=== PATIENT | male | born 1955 | race Caucasian/White ===

== ENCOUNTER 2024-03-17 12:29 | Emergency (ER) | payer OTHER, SELFPAY ==
[2024-03-17 12:30] VITALS: BMI 34.4
[2024-03-17 13:37] VITALS: BP 131/79; PULSE 60; RESP 16; TEMP 36.5; O2SAT 95
--- NOTE | 2024-03-17 13:48 | XR_ITS ---
Examination: PA lateral chest 2 views Technique: Upright PA lateral chest 2 views Exam date and time: March 17, 2024 1358 hrs. Comparison February 16, 2017 Indications: Chest pain dizziness today. Findings: Opacity in the right middle lobe obscuring detail right cardiac contour Normal heart size Ectatic thoracic aorta No pulmonary edema Impression: Right middle lobe pneumonia
--- NOTE | 2024-03-17 13:48 | EKG_ITS ---
[facility], [place] Test Date: 2024-03-17 Pat Name: HUNTER CARRANZA Department: Room: - Gender: Male Transportation Driver: : [id number] Requested By: Artis Edwards ([facility]) Order Number: [id number] Reading MD: Artis Edwards ([facility]) Measurements Intervals [place] Rate: 62 P: 47 [place]: 151 QRS: 45 QRSD: 84 T: 71 QT: 384 QTc: 391 Interpretive Statements SINUS RHYTHM WITH OCCASIONAL SUPRAVENTRICULAR PREMATURE COMPLEXES NONSPECIFIC T-WAVE ABNORMALITY No previous ECG available for comparison /store/S0/[id number].pdf
--- NOTE | 2024-03-17 13:48 | XR_ITS ---
Examination: CT brain head without contrast. 2-D sagittal coronal reconstructions Date and time of exam:March 17, 2024 1404 hrs. Comparison June 22, 2011 Indications: Onset dizziness today CTDI: vol (mGy):54.5 DLP: (mGycm):1126 Technique: Multiple CT axial sections of the brain have been obtained, 5 mm slice thickness. Contrast has not been administered. 2-D sagittal, coronal reconstructions have been obtained Low dose protocols were performed. One or more of the following dose reduction techniques were used; automated exposure control, adjustment of the mA and/or KV according to patient size, use of iterative reconstruction technique. Findings: No significant ventricular enlargement. Intra-axial or extra-axial hemorrhage density is not seen. No mass effect or midline shift Basal cisterns are not remarkable. Fourth ventricle is midline. Cranial vault intact. Impression: Negative for acute hemorrhage, mass effect or midline shift Advise clinical correlation follow-up accordingly
--- NOTE | 2024-03-17 13:49 | PD.EDRME ---
Rapid Medical Screening Exam RME Arrival date/time: 03/17/24 12:29 69-year-old male no significant past medical history presents emergency department complaining of dizziness and near syncope. Chief Complaint: Neuro Symptoms/Deficit Time Seen by Provider: 03/17/24 13:45 Vital signs: Vital Signs Temperature 97.7 F 03/17/24 13:37 Pulse Rate 60 03/17/24 13:37 Respiratory Rate 16 03/17/24 13:37 Blood Pressure 131/79 H 03/17/24 13:37 Pulse Oximetry (%) 95 03/17/24 13:37 Oxygen Delivery Method Room Air 03/17/24 13:37 Vital signs reviewed by provider: Yes
[2024-03-17 15:58] LABS: Basophils # (Auto) 0.1 Thou/mm3 (0.0-0.2); Basophils % (Auto) 1 % (0-2.5); Eosinophils # (Auto) 0.2 Thou/mm3 (0.0-0.5); Eosinophils % (Auto) 2 % (0-10); Hematocrit 46.7 % (41.0-53.0); Hemoglobin 15.7 g/dL (13.5-16.0); Immature Granulocytes % (Auto) 0 % (0-0); Immature Granulocytes Auto 0.02 Thou/mm3 (0.00-0.00); Lymphocytes # (Auto) 2.8 Thou/mm3 (1.0-4.8); Lymphocytes % (Auto) 39 % (10-50); Mean Corpuscular HGB Conc 33.6 g/dl (31.0-37.0); Mean Corpuscular Hemoglobin 30.5 pg (25.0-35.0); Mean Corpuscular Volume 91 fL (80-100); Monocytes # (Auto) 0.5 Thou/mm3 (0.0-0.8); Monocytes % (Auto) 7 % (0-12); Neutrophils # (Auto) 3.7 Thou/mm3 (1.8-7.7); Neutrophils % (Auto) 51 % (37-80); Nucleated Red Blood Cell % 0 /100 WBC (0); Platelet Count 234 Thou/mm3 (140-440); RDW Standard Deviation 43.5 fL (35.1-43.9); Red Blood Count 5.15 Miln/mm3 (4.50-5.90); White Blood Count 7.3 Thou/mm3 (3.8-10.6)
[2024-03-17 16:19] LABS: B-Type Natriuretic Peptide 35 pg/mL (0-100)
[2024-03-17 16:23] LABS: Alanine Aminotransferase 36 U/L (10-49); Albumin, Serum 4.9 gm/dL (3.4-4.8); Albumin/Globulin Ratio 2.2 (1.2-2.2); Alkaline Phosphatase 74 U/L (46-116); Anion Gap 8 (7-16); Aspartate Amino Transferase 26 U/L (0-34); BUN/Creatinine Ratio 16 Ratio (12-20); Bilirubin,Total 0.5 mg/dL (0.3-1.2); Blood Urea Nitrogen 22 mg/dL (9-23); Calcium 10.1 mg/dL (8.3-10.6); Calcium (Corrected) 10.1 mg/dL (8.5-10.1); Carbon Dioxide 29.3 mMol/L (20.0-31.0); Chloride 103 mMol/L (98-107); Creatinine (Component) 1.4 mg/dL (0.6-1.3); Estimated Creatinine Clearance 56.8 mL/min (>60); Globulin 2.2 gm/dL (2.3-3.5); Glucose 107 mg/dL (74-106); Osmolality,Calculated 282 (275-295); Potassium 4.2 mMol/L (3.4-5.1); Sodium 140 mMol/L (136-145); Total Protein 7.1 gm/dL (5.7-8.2); Troponin I < 0.020 ng/mL (0.0-0.045); eGFR 55 See Note
[2024-03-17 19:29] VITALS: BP 142/84; PULSE 66; RESP 16; TEMP 36.6; O2SAT 96
--- NOTE | 2024-03-17 19:44 | EDNOTE_ITS ---
ED General RME/HPI General Chief complaint: Neuro Symptoms/Deficit Stated complaint: DIZZINESS, NAUSEA, LEG WEAKNESS Time Seen by Provider: 03/17/24 13:45 Arrival date/time: 03/17/24 12:29 CC: Dizziness HPI mild insidious onset of dizziness this morning, states is mostly dissipated no prior history of similar events but does admit that he took 2 falls in the recent months where he hit his head, patient denies any loss of consciousness but was the first time in his life was not able to break a fall. Patient is afebrile nontoxic-appearing not in any acute distress with no focal deficits. RME / HPI RME / HPI narrative: 03/17/24 12:29 69-year-old male no significant past medical history presents emergency department complaining of dizziness and near syncope. Related Data Previous Rx's ?Medication ?Instructions ?Recorded meclizine 25 mg tablet 25 mg PO QDAY PRN dizziness #10 03/17/24 tabs Allergies Allergy/AdvReac Type Severity Reaction Status Date / Time No Known Allergies Allergy Verified 03/17/24 12:32 Review of Systems Review of Systems Narrative Review of Systems: GEN: No fever, no chills, no weight loss EYES: No discharge, no visual changes, no pain HEENT: No ear pain, no congestion, no sore throat PULM: No shortness of breath, no cough, no congestion CV: No chest pain, no dyspnea on exertion, no palpitations GI: No nausea, no vomiting, no diarrhea, no pain, no constipation : No frequency, no urgency, no dysuria MUSC/SKEL: No joint pain, no back pain SKIN: No rash PSYCH: No hallucinations, no depression HEME/LYMPH: No easy bleeding or bruising tendencies NEURO: No weakness, no headache,+ dizziness Past Medical History Past Medical History OTHER HISTORY: Positive Blood Transfusions Social History SMOKING STATUS: Never smoker ED Exam Narrative Physical exam: [General: Obese not in any acute distress Head normocephalic HEENT: Eyes: Pupils are PERRLA EOMs are intact no nystagmus mouth pink moist membranes uvula is midline all other subsystems of HEENT are within acceptable limits Neck is supple nontender Chest equal chest rise nontender to palpation Respiratory: Clear to auscultation no wheezes crackles or rubs CV: Rate rhythm is regular no murmurs rubs or clicks Abdomen is distended secondary to body habitus soft nontender no masses positive bowel sounds all 4 quadrants Back: No CVA tenderness no spinous process tenderness from cervical spine thoracic and lumbar spine Skin: Intact no petechiae rash induration ulceration or crepitus Extremities: Moving all extremity against resistance cap refill less than 2 seconds neurosensory intact Neuro: Awake alert oriented x3 Glascow coma 15 no focal deficits] cranial nerves through 2 through 12 are grossly intact Course Quality Measures none Orders Category Date Time Status EKG (ED ONLY) *Do not use* NOW Care 03/17/24 13:[address] head/brain wo con Stat Exams 03/17/24 13:48 Completed EKG (ED Only) Stat Exams 03/17/24 13:48 Draft XR chest 2V Stat Exams 03/17/24 13:48 Completed BNP [B-Type Natriuretic Peptide] Stat Lab 03/17/24 15:38 Completed CBC Stat Lab 03/17/24 15:38 Completed Comprehensive Metabolic Panel Stat Lab 03/17/24 15:38 Completed Troponin I Stat Lab 03/17/24 15:38 Completed Vital Signs Vital signs: Vital Signs Temperature 97.7 F 03/17/24 13:37 Pulse Rate 60 03/17/24 13:37 Respiratory Rate 16 03/17/24 13:37 Blood Pressure 131/79 H 03/17/24 13:37 Pulse Oximetry (%) 95 03/17/24 13:37 Oxygen Delivery Method Room Air 03/17/24 13:37 [facility] Patient data External records reviewed:: [facility] previous records Clinical information provided by:: patient Social determinants that could affect healthcare access:: none Patient has the following chronic illnesses:: None How is presenting disease/condition affected by chronic disease/condition?: u neffected by Evaluation data The following diagnostics were reviewed and interpreted by me:: lab results, radiology exam(s) and EKG tracing(s) Lab and/or radiology exams considered but not ordered:: EKG performed at 1357 shows a ventricular rate of 6 2 NV interval 151 QRS of 84 QTc of 389 this is sinus rhythm with occasional PVC. CBC shows no acute leukocytosis anemia thrombocytopenia CMP shows no acute electrolyte imbalances renal impairment transaminitis or T. bili elevation Troponin is negative CT of the head is interpreted by me read by radiology as negative for any acute finding. BNP is negative Interpretation Summary: Vertigo has dissipated to minimal. Patient has no acute finding that requires emergent intervention this time patient will be discharged home with vertigo. Medications Medications considered but not ordered:: None Medication administrations:: None Consultations Consultation(s) initiated? (list below): No Diagnosis Differential Diagnosis ED Complaint MDM: Vertigo CVA TIA Most likely diagnosis given after review of the tests above:: Vertigo Admission Indicated Admission indicated?: not indicated Explain why admission is indicated or not indicated:: Stable for outpatient follow-up Admission Request Was there a request for admission?: No Disposition Plan Disposition Plan: Discharge Discharge Attestation Discharge Attestation: The patient and all family members were given an opportunity to ask questions and understood the discharge instructions. Discharge instructions specifically effects, indications for sooner follow up or return to the emergency department, and the expected course of current diagnosis. Patient condition: Stable Medical Decision Making Differential Diagnosis Differential Diagnosis: Vertigo CVA TIA Lab Data 03/17/24 15:38 03/17/24 15:38 Labs: Lab Results 03/17/24 Range/Units 15:38 WBC 7.3 (3.8-10.6) Thou/mm3 RBC 5.15 (4.50-5.90) Miln/mm3 Hgb 15.7 (13.5-16.0) g/dL Hct 46.7 (41.0-53.0) % MCV 91 (80-100) fL MCH 30.5 (25.0-35.0) pg MCHC 33.6 (31.0-37.0) g/dl RDW Std Deviation 43.5 (35.1-43.9) fL Plt Count 234 (140-440) Thou/mm3 Neut % (Auto) 51 (37-80) % Lymph % (Auto) 39 (10-50) % Ma[place]ick % (Auto) 7 (0-12) % Eos % (Auto) 2 (0-10) % Baso % (Auto) 1 (0-2.5) % Neut # (Auto) 3.7 (1.8-7.7) Thou/mm3 Lymph # (Auto) 2.8 (1.0-4.8) Thou/mm3 Ma[place]ick # (Auto) 0.5 (0.0-0.8) Thou/mm3 Eos # (Auto) 0.2 (0.0-0.5) Thou/mm3 Baso # (Auto) 0.1 (0.0-0.2) Thou/mm3 Immature Gran # (Auto) 0.02 H (0.00-0.00) Thou/mm3 Absolute Nucleated RBC 0.00 (0.00-0.00) Thou/mm3 Immature Gran % 0 (0-0) % Nucleated RBC % 0 (0) /100 WBC Sodium 140 (136-145) mMol/L Potassium 4.2 (3.4-5.1) mMol/L Chloride 103 (98-107) mMol/L Carbon Dioxide 29.3 (20.0-31.0) mMol/L Anion Gap 8 (7-16) BUN 22 (9-23) mg/dL Creatinine 1.4 H (0.6-1.3) mg/dL Estim Creat Clear Calc 56.8 L (>60) mL/min eGFR 55 L (60 - ) See Note BUN/Creatinine Ratio 16 (12-20) Ratio Glucose 107 H (74-106) mg/dL Calculated Osmolality 282 (275-295) Calcium 10.1 (8.3-10.6) mg/dL Corrected Calcium 10.1 (8.5-10.1) mg/dL Total Bilirubin 0.5 (0.3-1.2) mg/dL AST 26 (0-34) U/L ALT 36 (10-49) U/L Alkaline Phosphatase 74 (46-116) U/L Troponin I < 0.020 (0.0-0.045) ng/mL B-Natriuretic Peptide 35 (0-100) pg/mL Total Protein 7.1 (5.7-8.2) gm/dL Albumin 4.9 H (3.4-4.8) gm/dL Globulin 2.2 L (2.3-3.5) gm/dL Albumin/Globulin Ratio 2.2 (1.2-2.2) Discharge Plan Plan Patient Disposition: HOME (Self Care) Patient condition on transfer: Stable Prescriptions/Referrals Prescriptions/Med Rec: New meclizine 25 mg tablet 25 mg PO QDAY PRN (Reason: dizziness) Qty: 10 0RF Referrals: Ryan Latif PA-C [Primary Care Provider] - In 1 week Problem List Clinical Impression: Vertigo Patient/Caregiver Discharge Instructions Other Activity Instructions:: There is no acute finding in all of the workup we did today, however you probably need a workup consider cardiology workup, if there is a worsening of symptoms return the emergency room for reevaluation. I prescribed you a small amount of antidizziness medication called meclizine is available to you in case you needed. Education Materials: ED Dizziness, Uncertain Cause Print Language: Upper Sorbian Stand Alone Forms: Leandra Award Info., Patient Portal Info Letter, Work/School Release PA/RN MEDICAL INPATIENT SERVICES Supervising Physician PA/RN MEDICAL INPATIENT SERVICES Supervising Physician: Yohan Larson ENP
== END 2024-03-17 20:06 | disposition home or self-care (01) ==
PROVIDERS: Emergency Provider Emergency Medicine; PCP Physician Assistant
DX: R42 Dizziness and giddiness (principal); R07.9 Chest pain, unspecified; I49.1 Atrial premature depolarization
CPT/HCPCS: 36415; 70450; 71046; 80053; 83880; 84484; 85025; 93005; 99284

== ENCOUNTER 2024-09-15 11:30 | Emergency (ER) | payer OTHER, SELFPAY ==
[2024-09-15 12:28] VITALS: BP 150/93; PULSE 70; RESP 18; TEMP 36.7; O2SAT 98; BMI 35.6
--- NOTE | 2024-09-15 12:48 | EDNOTE_ITS ---
ED Wound/Laceration-RME/HPI General Chief Complaint: Wound/Laceration Stated Complaint: laceration to left hand Time Seen by Provider: 09/15/24 12:01 Arrival date/time: 09/15/24 11:30 This is a case of 69-year-old male who came in in the emergency room due to left hand laceration history of present illness started 1 hour prior to arrival in the emergency room when the patient was cutting using a knife accidentally stabbed his left hand sustaining a sick centimeter laceration on the dorsal aspect of the left hand minimal bleeding noted no other injury noted tetanus shot is not up-to-date Limitations: no limitations Related Data Previous Rx's ?Medication ?Instructions ?Recorded meclizine 25 mg tablet 25 mg PO QDAY PRN dizziness #10 03/17/24 tabs cephalexin 500 mg capsule 1,000 mg (2 x 500 mg) PO Q12 H #40 09/15/24 caps mupirocin 2 % topical ointment 1 applic topical TID #2 2 grams 09/15/24 Allergies Allergy/AdvReac Type Severity Reaction Status Date / Time No Known Allergies Allergy Verified 09/15/24 11:34 Review of Systems Review of Systems Systems Reviewed: All systems reviewed, normal except as documented Constitutional Constitutional: Reports system reviewed and no additional complaints, except as documented ENT Ears, Nose, Mouth, and Throat: Denies neck pain Cardiovascular Cardiovascular: Reports system reviewed and no additional complaints, except as documented Respiratory Respiratory: Reports system reviewed and no additional complaints, except as documented Gastrointestinal Gastrointestinal: Reports system reviewed and no additional complaints, except as documented Musculoskeletal Musculoskeletal: Reports system reviewed and no additional complaints, except as documented, Denies abnormal gait, Denies arthralgias, Denies atrophy, Denies back pain, Denies deformity, Denies joint swelling, Denies limited range of motion, Denies loss of height, Denies muscle cramps, Denies muscle weakness, Denies myalgias, Denies neck pain, Denies numbness, Denies radiating pain into limb, Denies stiffness, Denies tingling and Reports other (Left hand pain) Integumentary/Breasts Skin/Breast: Reports other (Laceration) Neurologic Neurologic: Reports system reviewed and no additional complaints, except as documented, Reports as per HPI, Denies abnormal gait, Denies numbness and Denies tingling Past Medical History Past Medical History OTHER HISTORY: Positive Blood Transfusions Social History SMOKING STATUS: Never smoker ED Exam General Limitations: Present no limitations General appearance: Present alert and in no apparent distress Head Head exam: Present atraumatic Eye Eye exam: Present normal appearance, PERRL and EOMI ENT ENT exam: Present normal exam, normal oropharynx and mucous membranes moist Neck Neck exam: Present normal inspection, full ROM and trachea midline Chest Chest inspection: Present normal inspection and symmetric chest wall rise Respiratory Respiratory exam: Present normal lung sounds bilaterally; Absent respiratory distress, wheezes, stridor, accessory muscle use or prolonged expiratory phase Cardiovascular Cardiovascular exam: Present regular rate, normal rhythm and normal heart sounds Abdominal Exam Abdominal exam: Present soft and normal bowel sounds Extremities Exam Extremities exam: Present normal inspection and full ROM Expanded Upper Extremity Exam Hand exam: Present other (Noted laceration on the left hand sick centimeter linear laceration involvement of skin subcutaneous no muscle no tendon no bone injury with minimal bleeding no foreign body no abscess no cellulitis ROM intact no snuffbox tenderness neurovascular intact nail is intact) Hand tendon exam: Normal extensor tendon (location) Back Exam Back exam: Present normal inspection and full ROM Neurological Exam Neurological exam: Present alert, oriented X3, CN II-XII intact, normal gait and reflexes normal; Absent motor sensory deficit Psychiatric Psychiatric exam: Present normal affect and normal mood Skin Skin exam: Present warm, dry, intact, normal color and other (Left hand laceration) Course Quality Measures none Orders Category Date Time Status Lidocaine 1% W/Epi 1:100K 20Ml [Xylocaine 1% w/Epi 1: Med 09/15/24 12:28 Discontinued 100K 20 ml] 20 ml .ROUTE .STK-MED ONE Lidocaine 1% W/Epi 1:100K 20Ml [Xylocaine 1% w/Epi 1: Med 09/15/24 12:31 Discontinued 100K 20 ml] 20 ml INFL X1 ONE TET,DIP/PERT AC (Adult)-Tdap [Boostrix Adult (Tdap) Med 09/15/24 12:47 Discontinued Vacc] 0.5 ml IMI .ONCE ONE Vital Signs Vital signs: Vital Signs Temperature 98.0 F 09/15/24 12:28 Pulse Rate 70 09/15/24 12:28 Respiratory Rate 18 09/15/24 12:28 Blood Pressure 150/93 H 06/29/25 12:28 Pulse Oximetry (%) 98 09/15/24 12:28 Oxygen Delivery Method Room Air 09/15/24 12:28 Oxygen saturation 98% in room air PROCEDURES: Laceration Laceration 1: Site: other (Left hand) Side (If applicable): left Size (cm): 6 Description: linear Depth: simple, single layer Local Anesthetic: lidocaine 1% and with epi Amount of anesthesia used (mL): 6 Pre-repair: wound explored, irrigated extensively and deep structures intact Skin layer closed with: nylon Suture size (cm): 4-0 (10) Number of sutures: 10 Technique: simple, interrupted and horizontal mattress Wound / Laceration MDM Narrative MDM Narrative:: This is a case of 69-year-old male who came in in the emergency room due to left hand laceration history of present illness started 1 hour prior to arrival in the emergency room when the patient was cutting using a knife accidentally stabbed his left hand sustaining a sick centimeter laceration on the dorsal aspect of the left hand minimal bleeding noted no other injury noted tetanus shot is not up-to-date physical examination patient is awake alert oriented not in distress nontoxic looking patient sustained a sick centimeter linear laceration with involvement of the skin and subcutaneous no muscle no tendon no bone injury no foreign body minimal bleeding no abscess no cellulitis no redness laceration repair was performed patient tolerated well the procedure procedure done via [place] protocol and via sterile technique patient wound was covered with triple antibiotic and Ze bandage patient was advised to return tomorrow for reevaluation here in the emergency room and we will check he will also follow-up with PCP in 2 days for reevaluation wound check and for removal of suture in 10 days he was prescribed cephalexin for 10 days and mupirocin ointment to prevent infection Tdap was given here in the emergency room patient will take Tylenol for pain patient will return the emergency room for any signs and symptoms of infection or bleeding Patient was discharged with comfortable condition walking with stable gait. Patient verbalized no further complains explained diagnosis and answered patient question. Patient is comfortable with the proposed management plan including the need to follow up with his/her primary care physician and any specialist if applicable Discussed patient for any urgent condition or worsening sx, He/She needed to go to emergency room immediately or call 911. Patient acknowledge the responsibility to follow up as instructed and to monitor her/his symptoms. For any persistence of the symptoms for more than 3-5 days return precaution advised. Discussed the result of the test and was given printed discharge instruction Patient data External records reviewed:: [facility] previous records Clinical information provided by:: patient Social determinants that could affect healthcare access:: none Patient has the following chronic illnesses:: None How is presenting disease/condition affected by chronic disease/condition?: no chronic disease Evaluation data The following diagnostics were reviewed and interpreted by me:: other (specify) Lab and/or radiology exams considered but not ordered:: None Interpretation Summary: None Medications / Prescriptions Medications or Prescriptions considered but not ordered:: Reviewed Medication administrations:: Medication Administration History Discontinued Medications Diphtheria/Tetanus/Acell Pertussis (Diphth,Pertuss(Acell),Tet Vac 0.5 Ml Syr- Adult) 0.5 ml IMi .ONCE ONE Stop: 09/15/24 12:48 Lidocaine/Epinephrine (Lidocaine 1% W/Epi 1:100k 20 Ml Vial) Confirm Administered Dose 20 ml .ROUTE .STK-MED ONE Stop: 09/15/24 12:29 Last Admin: 09/15/24 12:49 Dose: Not Given Documented By: VL Non-Admin Reason: Duplicate Medication on eMAR Lidocaine/Epinephrine (Lidocaine 1% W/Epi 1:100k 20 Ml Vial) 20 ml INFL X1 ONE Stop: 09/15/24 12:32 Reviewed Consultations Consultation(s) initiated? (list below): No Diagnosis Wound Differential Diagnosis: laceration Most likely diagnosis given after review of the tests above:: Hand laceration Admission Indicated Admission indicated?: not indicated Explain why admission is indicated or not indicated:: Not indicated Admission Request Was there a request for admission?: No Admission Attestation Admission request attestation: Not indicated Disposition Plan Disposition Plan: Discharge Discharge Attestation Discharge Attestation: The patient and all family members were given an opportunity to ask questions and understood the discharge instructions. Discharge instructions specifically effects, indications for sooner follow up or return to the emergency department, and the expected course of current diagnosis. Patient condition: Stable Discharge Plan Plan Patient Disposition: HOME (Self Care) Prescriptions/Referrals Prescriptions/Med Rec: New cephalexin 500 mg capsule 1,000 mg PO Q12H Qty: 40 0RF mupirocin 2 % ointment 1 applic topical TID Qty: 22 0RF No Action meclizine 25 mg tablet 25 mg PO QDAY PRN (Reason: dizziness) Qty: 10 0RF Problem List Clinical Impression: Laceration of hand, left Patient/Caregiver Discharge Instructions Education Materials: Suture Care, ED Laceration, Hand: All Closures Additional Instructions: Follow-up with your primary care physician in 2 days for reevaluation and wound check and in 10 days for removal of suture return to the emergency room tomorrow for reevaluation and wound check for any redness swelling discharge from the wound pain fever chills discoloration or any signs and symptoms of infection return to the emergency room immediately or call 911 keep the wound clean and dry finish the course of antibiotic Print Language: Khmer Stand Alone Forms: Leandra Award Info., Patient Portal Info Letter PA/NETWORK SYSTEMS CONSULTANT Supervising Physician ZIGGY/DESIREE Supervising Physician: DR CAMPBELL
[2024-09-15] MEDS: DIPHTH,PERTUSS(ACELL),TET VAC 0.5 ML SYR- ADULT IMi (12:57)
[2024-09-15] MEDS: LIDOCAINE 1% W/EPI 1:100K 20 ML VIAL INFL (12:58)
== END 2024-09-15 13:10 | disposition home or self-care (01) ==
LOC: SERX 13:41
PROVIDERS: Emergency Provider Emergency Medicine
DX: S61.412A Laceration without foreign body of left hand, initial encounter (principal); W26.0XXA Contact with knife, initial encounter; Z23 Encounter for immunization
CPT/HCPCS: 12002; 90471; 90715; 99283; J3490

== ENCOUNTER 2024-09-16 08:06 | Emergency (ER) | payer OTHER, SELFPAY ==
[2024-09-16 08:14] VITALS: BP 137/86; PULSE 65; RESP 17; TEMP 36.8; O2SAT 98; BMI 36.0
--- NOTE | 2024-09-16 08:37 | PD.EDWOUND ---
ED Wound/Laceration-RME/HPI General Chief Complaint: Wound Recheck / Suture Removal Stated Complaint: Wound recheck to left arm Time Seen by Provider: 09/16/24 08:13 Arrival date/time: 09/16/24 08:06 RME / HPI RME / HPI narrative: 69-year-old patient presents emergency department with reevaluation of laceration of left hand that occurred yesterday. Patient was seen in the ED and sutures were placed over laceration site patient was told to return to ED in 2 to 5 days for reevaluation. Patient currently states that he feels better with no complications to his sutured laceration he also states that he is taking his antibiotic as was prescribed. Related Data Previous Rx's ?Medication ?Instructions ?Recorded meclizine 25 mg tablet 25 mg PO QDAY PRN dizziness #10 03/17/24 tabs cephalexin 500 mg capsule 1,000 mg (2 x 500 mg) PO Q12H #40 09/15/24 caps mupirocin 2 % topical ointment 1 applic topical TID #22 grams 09/15/24 Allergies Allergy/AdvReac Type Severity Reaction Status Date / Time codeine Allergy Verified 09/16/24 08:09 Review of Systems Review of Systems Systems Reviewed: All systems reviewed, normal except as documented Constitutional Constitutional: Reports system reviewed and no additional complaints, except as documented Cardiovascular Cardiovascular: Reports system reviewed and no additional complaints, except as documented Musculoskeletal Musculoskeletal: Reports system reviewed and no additional complaints, except as documented ED Exam General General appearance: Present alert and in no apparent distress Head Head exam: Present atraumatic and normocephalic Chest Chest inspection: Present normal inspection and symmetric chest wall rise Respiratory Respiratory exam: Absent respiratory distress Cardiovascular Cardiovascular exam: Present regular rate Expanded Upper Extremity Exam Hand exam: Present normal inspection, tenderness and swelling Hand L/R back image:  1. mild swelling Neurological Exam Neurological exam: Present alert and oriented X3 Course Quality Measures none Orders Category Date Time Status Wound Care NOW Care 09/16/24 08:36 Active Reevaluation(s) Reevaluation #1: No signs of secondary infection mild swelling noted to left and consistent with recent trauma. Vital Signs Vital signs: Vital Signs Temperature 98.3 F 09/16/24 08:14 Pulse Rate 65 09/16/24 08:14 Respiratory Rate 17 09/16/24 08:14 Blood Pressure 137/86 H 09/16/24 08:14 Pulse Oximetry (%) 98 09/16/24 08:14 Oxygen Delivery Method Room Air 09/16/24 08:14 Wound / Laceration MDM Narrative MDM Narrative:: 69-year-old patient returns to the emergency department for wound reevaluation. Patient was seen yesterday and sutures were placed over the laceration to his left posterior hand. Patient denies fever or chills. Patient retains normal range of motion to his wrist. He does have some pain with flexion of his left hand due to swelling of his posterior left hand this appears more consistent with recent trauma no signs of secondary infection. Patient data External records reviewed:: [facility] previous records Clinical information provided by:: patient Social determinants that could affect healthcare access:: none Patient has the following chronic illnesses:: na How is presenting disease/condition affected by chronic disease/condition?: uneffected by Evaluation data The following diagnostics were reviewed and interpreted by me:: other (specify) (previous medical record) Lab and/or radiology exams considered but not ordered:: na Interpretation Summary: na Medications / Prescriptions Medications or Prescriptions considered but not ordered:: na Medication administrations:: na Consultations Consultation(s) initiated? (list below): No Diagnosis Wound Differential Diagnosis: laceration, abscess and avulsion of skin Most likely diagnosis given after review of the tests above:: wound/ suture re-evaluation Admission Indicated Admission indicated?: not indicated Admission Request Was there a request for admission?: No Disposition Plan Disposition Plan: Discharge Discharge Attestation Discharge Attestation: The patient and all family members were given an opportunity to ask questions and understood the discharge instructions. Discharge instructions specifically effects, indications for sooner follow up or return to the emergency department, and the expected course of current diagnosis. Patient condition: Stable Discharge Plan Plan Patient Disposition: HOME (Self Care) Prescriptions/Referrals Prescriptions/Med Rec: No Action cephalexin 500 mg capsule 1,000 mg PO Q12H Qty: 40 0RF mupirocin 2 % ointment 1 applic topical TID Qty: 22 0RF meclizine 25 mg tablet 25 mg PO QDAY PRN (Reason: dizziness) Qty: 10 0RF Referrals: Ryan Latif PA-C [Primary Care Provider] - In 1 week Problem List Clinical Impression: Encounter for evaluation of wound Impression comment: Laceration is healing as expected. Apply ice over left hand and elevate your left hand above your head to help reduce swelling. Patient/Caregiver Discharge Instructions Education Materials: ED RICE Print Language: [place]raini Stand Alone Forms: Leandra Award Info., Patient Portal Info Letter
== END 2024-09-16 09:39 | disposition home or self-care (01) ==
PROVIDERS: Emergency Provider Emergency Medicine; PCP Physician Assistant
DX: S61.412D Laceration without foreign body of left hand, subsequent encounter (principal); X58.XXXD Exposure to other specified factors, subsequent encounter
CPT/HCPCS: 99281